=== PATIENT | female | born 1980 | race Caucasian/White ===

== ENCOUNTER 2020-03-21 09:52 | Day surgery (SDC) | payer OTHER ==
[2020-03-21 10:20] LABS: Glucose,Whole Blood 157 mg/dL (75-99)
[2020-03-21] MEDS ORDERED: LACTATED RINGERS 1,000 ML IV ONE (10:25)
[2020-03-21 10:36] VITALS: TEMP 97.3
[2020-03-21] MEDS ORDERED: LIDOCAINE 1% INJ 10MG/ML (20 ML MDV) ONE (10:40)
[2020-03-21] MEDS ORDERED: PROPOFOL 10 MG/ML 20 ML VIAL IV ONE (10:40)
--- NOTE | 2020-03-21 10:40 | P.GSHP ---
History of Present Illness H&P Date: 03/21/20 Chief Complaint: Anemia This a 39-year-old female who's underwent colonoscopy for workup of anemia. Patient denies a significant GI bleed. Currently on iron supplementation. Past Medical History Past Medical History: Diabetes Mellitus History of Any Multi-Drug Resistant Organisms: None Reported Past Surgical History: Section Past Psychological History: Depression Past Alcohol Use History: Occasional Past Drug Use History: None Reported Medications and Allergies Home Medications Medication Instructions Recorded Confirmed Type Ciprofloxacin HCl [Cipro] 500 mg PO Q12HR #20 tablet 09/17/15 Rx Citalopram Hydrobromide 40 mg PO DAILY 09/17/15 09/17/15 History [Citalopram HBr] INSULIN LISPRO (HumaLOG) [HumaLOG] 0 units SQ ACHS 09/17/15 09/17/15 History Insulin Glargine [Lantus] 38 unit SQ DAILY 09/17/15 09/17/15 History Omeprazole 20 mg PO DAILY 09/17/15 09/17/15 History Allergies Allergy/AdvReac Type Severity Reaction Status Date / Time No Known Allergies Allergy Verified 09/17/15 15:08 Surgical - Exam Vital Signs Temp Pulse Resp BP Pulse Ox 97.3 F L 83 16 154/82 98 03/21/20 10:35 03/21/20 10:35 03/21/20 10:35 03/21/20 10:35 03/21/20 10:35 - General well developed, well nourished, no distress - Eyes PERRL - ENT normal pinna - Neck no masses - Respiratory normal expansion - Cardiovascular Rhythm: regular - Abdomen Abdomen: soft, non tender Results - Labs Abnormal Lab Results - Last 24 Hours (Table) 03/21/20 Range/Units 10:16 POC Glucose (mg/dL) 157 H (75-99) mg/dL Assessment and Plan Assessment: Anemia. We'll perform colonoscopy for workup of anemia and possible GI bleed..
--- NOTE | 2020-03-21 10:58 | P.OP ---
Date of Procedure: 03/21/20 Preoperative Diagnosis: Anemia Postoperative Diagnosis: Antral gastritis Hiatal hernia Esophagitis Rectal polyp Procedure(s) Performed: EGD Colonoscopy Anesthesia: MAC Surgeon: Joe Whitehead Pathology: other (Antrum, esophagus) Condition: stable Disposition: PACU Description of Procedure: The patient's placed on the endoscopy table in the lateral position. She received IV sedation. The gastricoropharynx passed in the esophagus and stomach. Scope then placed through the pylorus. First and second portion of the duodenum appeared normal. Scope was brought back the antrum this is mildly inflamed. A biopsies performed at scope was unretroflexed and remainder of the stomach appeared normal. There was a small hiatal hernia. The GE junction was at 40 cm the distal esophagus appeared inflamed a biopsies performed. The proximal esophagus appeared normal. Scope was withdrawn for patient. Next digital rectal exam was performed which revealed a few internal hemorrhoids. The flexible colonoscope was then placed patient anus passed rotator entire colon. The ileocecal valve was visually is. The cecum, ascending and transverse colon appeared normal. The descending and sigmoid colon appeared normal. In the rectum there were 2 polyps seen this removed with the snare and cold biopsy forcep. The scope was withdrawn for patient. There is no evidence of any GI bleed.
[2020-03-21 11:34] VITALS: RESP 20
[2020-03-21] MEDS ORDERED: LACTATED RINGERS 1,000 ML IV SCH (11:37)
[2020-03-21 11:38] VITALS: BP 123/78; PULSE 80
--- NOTE | 2020-03-23 15:24 | CDI ---
Outpatient Documentation Clarification Form Date: 03/23/20 CDS/Blower And Compressor Assembler Name: Kathryn Amador Phone: If any questions, call Annika Koroma Installation Helper at [phone] Patient Name: Carly Calderon Admit Date: 03/21/26 Discharge Date: 03/23/20 ATTENTION: The [facility] Coding Staff appreciate your assistance in clarifying documentation. Please respond to the clarification below the line at the bottom and electronically sign. The [facility] Coding staff will review the response and follow-up if needed. Please note: Queries are made part of the Legal Health Record. If you have any questions, please contact the Installation Helper. Dear Dr. Spivey, Please clarify the method of biopsy EACH individual polyp. Operative report states "In the rectum there were 2 polyps seen. this was removed with snare and biopsy forceps. In order to code to the most specificity please clarify below: Colonoscopy/ biopsy. Polypectomy (snare) Cold biopsy forceps Thank you for your kind consideration . 1 polyp was removed with the snare, the second polyp was removed with the cold biopsy forcep MTDD
== END 2020-03-21 11:46 | disposition home or self-care (01) ==
LOC: ORWHC2ENDO 09:52
PROVIDERS: ATTEND Surgery
DX: D12.8 Benign neoplasm of rectum (principal); K44.9 Diaphragmatic hernia without obstruction or gangrene; K64.8 Other hemorrhoids; K29.50 Unspecified chronic gastritis without bleeding; K21.0 Gastro-esophageal reflux disease with esophagitis; D64.9 Anemia, unspecified; E11.9 Type 2 diabetes mellitus without complications; F32.9 Major depressive disorder, single episode, unspecified; F17.200 Nicotine dependence, unspecified, uncomplicated; Z98.890 Other specified postprocedural states; Z79.4 Long term (current) use of insulin; Z79.899 Other long term (current) drug therapy
CPT/HCPCS: 45385; 45380; 43239; 81025; 88305; J2001; J2704

== ENCOUNTER → 2020-04-29 | Outpatient (CLI) | payer OTHER ==
[2020-04-29 16:12] LABS: HCT 39.7 % (34.0-46.0); HGB 12.7 gm/dL (11.4-16.0); Hypochromasia Slight; MCH 30.2 pg (25.0-35.0); MCV 94.3 fL (80.0-100.0); Mean Platelet Volume 7.7; Platelet Count 344 k/uL (150-450); RBC 4.21 m/uL (3.80-5.40); RDW 15.8 % (11.5-15.5); WBC 10.4 k/uL (3.8-10.6)
== END | disposition home or self-care (01) ==
LOC: LABPAT 13:54
PROVIDERS: ATTEND Surgery
DX: Z01.818 Encounter for other preprocedural examination (principal)
CPT/HCPCS: 36415; 85027

== ENCOUNTER 2020-05-01 07:07 | Day surgery (SDC) | payer OTHER ==
[2020-04-29 13:10] VITALS: BMI 42.3
[~2020-05-01 07:07] MED LIST: ACETAMINOPHEN TAB 500 MG TAB PO ONE; DEXAMETHASONE SOD PHOSPHATE 10 MG/ML 1 ML VIAL IV ONE; HEPARIN SODIUM,PORCINE 5,000 UNIT/ML 1 ML VIAL SQ ONE; LACTATED RINGERS 1,000 ML IV SCH; LIDOCAINE 1% (10MG/ML) FOR IV START INTRADERMA PRN; MIDAZOLAM 2 MG/2 ML VIAL IV PRN; ONDANSETRON 4 MG/2 ML VIAL IVP ONE; ceFAZolin 3 GM in SODIUM CHLORIDE 0.9% 100 ML IVPB ONE
[2020-05-01 07:51] LABS: Glucose,Whole Blood 93 mg/dL (75-99)
[2020-05-01] MEDS ORDERED: SUCCINYLCHOLINE CHLORIDE 100 MG/5 ML SYR IV ONE (08:09)
[2020-05-01] MEDS ORDERED: HYDROmorphone (PF) 1 MG/ML ONE (08:09)
[2020-05-01] MEDS ORDERED: NEOSTIGMINE 1 MG/ML 10 ML VIAL ONE (08:09)
[2020-05-01] MEDS ORDERED: LIDOCAINE 1% INJ 10MG/ML (20 ML MDV) ONE (08:09)
[2020-05-01] MEDS ORDERED: ROCURONIUM 10 MG/ML (5 ML VIAL) IV ONE (08:09)
[2020-05-01] MEDS ORDERED: GLYCOPYRROLATE 0.2 MG/ML 2 ML VIAL ONE (08:09)
[2020-05-01] MEDS ORDERED: PROPOFOL 10 MG/ML 20 ML VIAL IV ONE (08:09)
[2020-05-01] MEDS ORDERED: ONDANSETRON 4 MG/2 ML VIAL ONE (08:09)
[2020-05-01] MEDS ORDERED: MIDAZOLAM 2 MG/2 ML VIAL ONE (08:09)
[2020-05-01] MEDS ORDERED: fentaNYL (PF) 50 MCG/ML 2 ML AMP ONE (08:09)
[2020-05-01] MEDS ORDERED: BUPIVACAINE (PF) 0.25% 30 ML VIAL SQ ONE (08:32)
--- NOTE | 2020-05-01 08:50 | P.GSHP ---
History of Present Illness H&P Date: 05/01/20 Chief Complaint: Right upper quadrant pain Is a 39-year-old female with right upper quadrant pain. Her recent HIDA scan shows a abnormal ejection fraction consistent with chronic cholecystitis and biliary hyperkinesis. Patient presents today for laparoscopic cholecystectomy. Past Medical History Past Medical History: Diabetes Mellitus, GERD/Reflux, Hyperlipidemia History of Any Multi-Drug Resistant Organisms: None Reported Past Surgical History: Section Additional Past Surgical History / Comment(s): EGD Past Anesthesia/Blood Transfusion Reactions: No Reported Reaction Smoking Status: Current every day smoker - Past Family History Mother Family Medical History: Cancer Father Family Medical History: Cancer Daughter(s) Family Medical History: Cancer Medications and Allergies Home Medications Medication Instructions Recorded Confirmed Type INSULIN LISPRO (HumaLOG) [HumaLOG] 0 units SQ ACHS 09/17/15 05/01/20 History Omeprazole 20 mg PO DAILY 09/17/15 05/01/20 History Atorvastatin [Lipitor] 10 mg PO HS 04/29/20 05/01/20 History DULoxetine HCL [Cymbalta] 30 mg PO HS 04/29/20 05/01/20 History DULoxetine HCL [Cymbalta] 60 mg PO QAM 04/29/20 05/01/20 History Ergocalciferol [Vitamin D2] 50,000 unit PO MO 04/29/20 05/01/20 History Ferrous Sulfate [Feosol] 325 mg PO DAILY 04/29/20 05/01/20 History Insulin Glargine,Hum.rec.anlog 50 unit SQ HS 04/29/20 05/01/20 History [[place] U-100] Allergies Allergy/AdvReac Type Severity Reaction Status Date / Time venlafaxine [From Effexor] Allergy Swelling Verified 05/01/20 07:33 Surgical - Exam Vital Signs Temp Pulse Resp BP Pulse Ox 98.5 F 90 16 185/83 95 05/01/20 07:18 05/01/20 07:18 05/01/20 07:18 05/01/20 07:18 05/01/20 07:18 - General well developed, well nourished, no distress - Eyes PERRL - ENT normal pinna - Neck no masses - Respiratory normal expansion - Cardiovascular Rhythm: regular - Abdomen Abdomen: soft Assessment and Plan Assessment: Chronic cholecystitis Morbid obesity Patient will undergo for laparoscopic cholecystectomy
--- NOTE | 2020-05-01 08:51 | P.OP ---
Date of Procedure: 05/01/20 Preoperative Diagnosis: Cholecystitis Postoperative Diagnosis: Cholecystitis Procedure(s) Performed: Laparoscopic cholecystectomy Anesthesia: CARMEN Surgeon: Joe Whitehead Estimated Blood Loss (ml): 5 Pathology: other (Gallbladder) Condition: stable Disposition: PACU Description of Procedure: The patient was placed on the operating table. The patient received a general endotracheal tube anesthesia. The patients abdomen was prepped and draped in the usual sterile fashion. Through an infraumbilical stab incision, the fascia of the anterior abdominal wall was grasped with a pair of Kochers and then the Veress needle was placed in the peritoneal cavity. Position of the Veress needle was confirmed with positive drop test. The abdomen was then insufflated. After adequate insufflation, the 10 mm trocar was placed in the peritoneal cavity. Following this the laparoscope was placed in the peritoneal cavity. The patient was placed in the head-up, right side up position and then a 5 mm trocar was placed in the right lateral and right subcostal position under direct visualization. A 8 mm trocar was placed in the epigastric position. The gallbladder was grasped in the fundus and infundibulum. Traction on the gallbladder was placed in the lateral and the cephalad positions. The triangle of Calot was visualized.. The cystic duct was bluntly dissected until the union of the cystic duct and common bile duct was seen. A critical view of safety was achieved. The cystic duct was then divided and sealed with the Harmonic scissors. A PDS Endoloop was then placed throughout the cystic duct stump. The cystic artery divided and sealed with the Harmonic scissors. The gallbladder was then removed from the liver bed using Harmonic scissors. The gallbladder was then extracted through the epigastric port site. Operative field was checked for any bleeding spots and Harmonic scissors was used to coagulate the liver bed. The abdomen was irrigated. The trocars were removed. The skin was closed using interrupted 3-0 Vicryl suture. Dermabond dressing were applied. The patient tolerated the procedure well.
[2020-05-01 09:09] VITALS: TEMP 96.8
[2020-05-01] MEDS: HYDROmorphone 0.5 MG/0.5 ML SYRINGE IVP PRN ×3 (09:13→09:27)
[2020-05-01] MEDS ORDERED: LACTATED RINGERS 1,000 ML IV ONE ×2 (09:15)
[2020-05-01 09:23] LABS: Glucose,Whole Blood 112 mg/dL (75-99)
[2020-05-01 09:30] VITALS: RESP 16
[2020-05-01 10:31] VITALS: BP 138/77; PULSE 74
== END 2020-05-01 10:54 | disposition home or self-care (01) ==
LOC: OR 07:07
PROVIDERS: ATTEND Surgery
DX: K81.1 Chronic cholecystitis (principal); E11.9 Type 2 diabetes mellitus without complications; K21.9 Gastro-esophageal reflux disease without esophagitis; E78.5 Hyperlipidemia, unspecified; Z98.891 History of uterine scar from previous surgery; F17.200 Nicotine dependence, unspecified, uncomplicated; I10 Essential (primary) hypertension; F32.9 Major depressive disorder, single episode, unspecified; F17.210 Nicotine dependence, cigarettes, uncomplicated; E66.01 Morbid (severe) obesity due to excess calories; Z68.41 Body mass index [BMI] 40.0-44.9, adult; Z80.9 Family history of malignant neoplasm, unspecified; Z79.4 Long term (current) use of insulin; Z79.899 Other long term (current) drug therapy; Z88.8 Allergy status to other drugs, medicaments and biological substances
CPT/HCPCS: 81025; 88304; 47562; J2250; J1644; J1100; J2710; J0690; J2405; J2001; J3010; J1170 ×2; J0330; J2704

== ENCOUNTER → 2024-01-12 | Outpatient (CLI) | payer MEDICARE, OTHER ==
--- NOTE | 2024-01-12 08:55 | MM ---
Reason for Exam: Clinical finding. Last mammogram was performed 2 year(s) and 2 month(s) ago. Risk Values: Jackie 5 year model risk: 0.5%. NCI Lifetime model risk: 6.5%. Tissue Density: The breasts are heterogeneously dense, which may obscure small masses. Findings: Analyzed By CAD. No evidence for mass or distortion. Stable benign-appearing calcifications outer left breast. Ultrasound recommended for site of palpable abnormality left breast. Overall Assessment: Incomplete: need additional imaging evaluation, BI-RAD 0 Management: Diagnostic Breast Ultrasound of the left breast. . Results were given to the patient verbally at the time of exam. Patient should continue monthly self-breast exams. A clinical breast exam by your physician is recommended on an annual basis. This exam should not preclude additional follow-up of suspicious palpable abnormalities. Note on Jackie scores and lifetime risk: 1. A Jackie score greater than 3% is considered moderate risk. If this is the case, consider specialist referral to assess eligibility for a risk reducing agent. 2. If overall lifetime risk for the development of breast cancer is 20% or higher, the patient may qualify for future screening with alternating mammogram and breast MRI. Electronically signed and approved by: Garrett Vallejo M.D. Radiologis
--- NOTE | 2024-01-12 09:18 | USB ---
Reason for Exam: Clinical finding. Patient History: Menarche at age 11. First Full-Term at age 24. Premenopausal. Maternal grandmother had breast cancer, age 70. Mother had breast cancer, age 50. Risk Values: Jackie 5 year model risk: 1.5%. NCI Lifetime model risk: 18.2%. Technique: Method: Targeted. Prior Study Comparison: 07/16/2020 Bilateral Screening Mammogram, [facility]. 10/28/2021 Bilateral Screening Mammogram, [facility]. Findings: The lower section of the breast of the left breast, the axilla of the left breast and the retroareolar of the left breast were scanned. Vague hyperechoic area with central decreased echogenicity at the left 8:00 position at the site of clinical concern for centimeters from the nipple measuring 1.1 x 2.7 cm. This findings felt to reflect an area of contusion. Correlate clinically and follow-up is recommended. Overall Assessment: Probably benign, BI-RAD 3 Management: Diagnostic Breast Ultrasound of the left breast in 6 months. A clinical breast exam by your physician is recommended on an annual basis and results should be correlated with mammographic findings. This exam should not preclude additional follow-up of suspicious palpable abnormalities. Results were given to the patient verbally at the time of exam. Electronically signed and approved by: Garrett Vallejo M.D. Radiologis
== END | disposition home or self-care (01) ==
LOC: RADMAMWWP 08:28
PROVIDERS: ATTEND Family Medicine
DX: N63.0 Unspecified lump in unspecified breast (principal); Z80.3 Family history of malignant neoplasm of breast; R92.333 Mammographic heterogeneous density, bilateral breasts
CPT/HCPCS: 77062; 77066

== ENCOUNTER 2024-02-14 07:55 | Day surgery (SDC) | payer MEDICARE ==
[~2024-02-14 07:55] MED LIST changes: -ACETAMINOPHEN TAB 500 MG TAB PO ONE; -DEXAMETHASONE SOD PHOSPHATE 10 MG/ML 1 ML VIAL IV ONE; -HEPARIN SODIUM,PORCINE 5,000 UNIT/ML 1 ML VIAL SQ ONE; -LACTATED RINGERS 1,000 ML IV SCH; -MIDAZOLAM 2 MG/2 ML VIAL IV PRN; -ONDANSETRON 4 MG/2 ML VIAL IVP ONE; -ceFAZolin 3 GM in SODIUM CHLORIDE 0.9% 100 ML IVPB ONE
[2024-02-14 08:24] VITALS: TEMP 97.6
[2024-02-14] MEDS: IV FLUID CONTINUATION 1,000 ML IV ONE ×3 (08:25→10:04)
[2024-02-14] MEDS: LACTATED RINGERS 1,000 ML IV SCH (08:38)
[2024-02-14] MEDS ORDERED: LIDOCAINE 2% (PF) 20 MG/ML 5 ML VIAL ONE (09:46)
[2024-02-14] MEDS ORDERED: PROPOFOL 10 MG/ML 20 ML VIAL IV ONE (09:46)
--- NOTE | 2024-02-14 09:56 | P.GSHP ---
History of Present Illness H&P Date: 02/14/24 Chief Complaint: , Hiatal hernia Is a 43-year-old female with complaints of gerd. Patient is known to have a hiatal hernia. Past Medical History Past Medical History: Diabetes Mellitus, GERD/Reflux, Hyperlipidemia, Hypertension Additional Past Medical History / Comment(s): Type I DM History of Any Multi-Drug Resistant Organisms: None Reported Past Surgical History: Section Additional Past Surgical History / Comment(s): EGD, colonoscopy, pilonidal cyst excision Past Anesthesia/Blood Transfusion Reactions: No Reported Reaction Smoking Status: Former smoker - Past Family History Mother Family Medical History: Cancer Father Family Medical History: Cancer Daughter(s) Family Medical History: Cancer Medications and Allergies Home Medications Medication Instructions Recorded Confirmed Type Omeprazole 20 mg PO BID PRN 09/17/15 02/14/24 History Atorvastatin [Lipitor] 10 mg PO HS 04/29/20 02/14/24 History DULoxetine HCL [Cymbalta] 60 mg PO QAM 04/29/20 02/14/24 History Ibuprofen [Motrin] 600 mg PO Q6HR PRN #40 tab 05/01/20 02/14/24 Rx Acetaminophen Tab [Tylenol] 650 mg PO Q6H PRN 02/09/24 02/14/24 History Dulaglutide [Trulicity] 1.5 mg SQ Q7D 02/09/24 02/14/24 History INSULIN LISPRO (For Pump) [humaLOG 2.3 units SQ-PUMP CONTINUOUS 02/09/24 02/14/24 History (For Pump)] lamoTRIgine [LaMICtal] 100 mg PO QAM 02/09/24 02/14/24 History lisinopriL [Zestril] 10 mg PO DAILY 02/09/24 02/14/24 History Allergies Allergy/AdvReac Type Severity Reaction Status Date / Time venlafaxine [From Effexor] Allergy Swelling Verified 02/14/24 08:26 Surgical - Exam Vital Signs Temp Pulse Resp BP Pulse Ox 97.6 F 68 18 143/70 100 02/14/24 08:23 02/14/24 08:23 02/14/24 08:23 02/14/24 08:23 02/14/24 08:23 - General well developed, well nourished, no distress - Eyes PERRL - ENT normal pinna - Neck no masses - Respiratory normal expansion - Cardiovascular Rhythm: regular - Abdomen Abdomen: soft, non tender Assessment and Plan Assessment: hiatal hernia. Will perform EGD.
--- NOTE | 2024-02-14 10:05 | P.OP ---
Date of Procedure: 02/14/24 Preoperative Diagnosis: Gerd Hiatal hernia Postoperative Diagnosis: GerdGERD hiatal hernia Esophagitis Procedure(s) Performed: EGD Anesthesia: MAC Surgeon: Joe Whitehead Pathology: other (antrum, esophagus) Condition: stable Disposition: PACU Description of Procedure: the patient's placed on the endoscopy table in the lateral position. She received IV sedation. The gastro-/oropharynx passed in the esophagus and stomach. Scope was placed through the pylorus. First and second portion of the duodenum appeared normal. Scope summer back the antrum this was mildly inflamed. A biopsies performed. Scope was unretroflexed and remainder the stomach appeared normal. The patient had a sliding hiatal hernia. The GE junction was at 38 cm. The distal esophagus appeared mildly inflamed and a biopsies performed. The proximal esophagus appeared normal. Scope was withdrawn for patient.
[2024-02-14 10:37] VITALS: BP 112/64; PULSE 84; RESP 16
== END 2024-02-14 10:45 | disposition home or self-care (01) ==
LOC: ORWHC2ENDO 07:55
PROVIDERS: ATTEND Surgery
DX: K29.50 Unspecified chronic gastritis without bleeding (principal); E11.9 Type 2 diabetes mellitus without complications; I10 Essential (primary) hypertension; E78.5 Hyperlipidemia, unspecified; F41.9 Anxiety disorder, unspecified; F32.A Depression, unspecified; Z79.4 Long term (current) use of insulin; Z87.891 Personal history of nicotine dependence; Z80.9 Family history of malignant neoplasm, unspecified; Z79.899 Other long term (current) drug therapy; Z79.02 Long term (current) use of antithrombotics/antiplatelets; Z79.1 Long term (current) use of non-steroidal anti-inflammatories (NSAID); Z79.85 Long-term (current) use of injectable non-insulin antidiabetic drugs; Z88.8 Allergy status to other drugs, medicaments and biological substances
CPT/HCPCS: 43239; 81025; 88305

== ENCOUNTER → 2024-03-09 | Outpatient (CLI) | payer OTHER | END | disposition home or self-care (01) | LOC: LABWHC1 12:24 | DX: Z01.818 Encounter for other preprocedural examination (principal); K21.9 Gastro-esophageal reflux disease without esophagitis; R94.31 Abnormal electrocardiogram [ECG] [EKG]; Z79.899 Other long term (current) drug therapy | CPT/HCPCS: 36415; 93005 ==

== ENCOUNTER 2024-03-13 08:00 | Inpatient (IN) | payer OTHER ==
[2024-03-13] MEDS ORDERED: DEXAMETHASONE SOD PHOSPHATE 4 MG/ML 1 ML VIAL ONE ×2 (09:30)
[2024-03-13] MEDS ORDERED: HEPARIN SODIUM,PORCINE 5,000 UNIT/ML 1 ML VIAL ONE ×2 (09:30)
[2024-03-13] MEDS ORDERED: ACETAMINOPHEN TAB 500 MG TAB ONE ×2 (09:30)
[2024-03-13] MEDS ORDERED: ONDANSETRON 4 MG/2 ML VIAL ONE ×2 (09:31)
[2024-03-13] MEDS ORDERED: fentaNYL (PF) 50 MCG/ML 2 ML AMP ONE (12:06)
[2024-03-13] MEDS ORDERED: PROPOFOL 10 MG/ML 20 ML VIAL IV ONE (12:06)
[2024-03-13] MEDS ORDERED: PHENYLEPHRINE-0.9% NACL SYG 1,000 MCG/10 ML SYRINGE ONE (12:06)
[2024-03-13] MEDS ORDERED: diphenhydrAMINE 50 MG/ML 1 ML VIAL ONE (12:06)
[2024-03-13] MEDS ORDERED: NEOSTIGMINE 1 MG/ML 10 ML VIAL ONE (12:06)
[2024-03-13] MEDS ORDERED: HYDROmorphone (PF) 1 MG/ML ONE (12:06)
[2024-03-13] MEDS ORDERED: KETOROLAC 15 MG/ML 1 ML VIAL ONE (12:06)
[2024-03-13] MEDS ORDERED: ROCURONIUM 10 MG/ML (5 ML VIAL) IV ONE (12:06)
[2024-03-13] MEDS ORDERED: SUCCINYLCHOLINE CHLORIDE 200 MG/10 ML VIAL IV ONE (12:06)
[2024-03-13] MEDS ORDERED: ceFAZolin 1 GM/50 ML BAG (PMX) ONE (12:06)
[2024-03-13] MEDS ORDERED: MIDAZOLAM 2 MG/2 ML VIAL ONE (12:06)
[2024-03-13] MEDS ORDERED: GLYCOPYRROLATE 0.2 MG/ML 2 ML VIAL ONE (12:06)
[2024-03-13] MEDS ORDERED: LIDOCAINE 1% INJ 10MG/ML (20 ML MDV) ONE (12:06)
[2024-03-13] MEDS ORDERED: METOCLOPRAMIDE 5 MG/ML 2 ML VIAL ONE (13:40)
[2024-03-13] MEDS ORDERED: HYDROmorphone 0.5 MG/0.5 ML SYRINGE ONE ×2 (13:40→17:35)
[2024-03-13] MEDS ORDERED: INSULIN ASPART (NovoLOG) 100 UNIT/ML VIAL SQ ONE ×3 (14:42→21:23)
[2024-03-13] MEDS ORDERED: HYDROmorphone 1 MG/ML 1 ML SYRINGE ONE ×2 (21:23)
[2024-03-14] MEDS ORDERED: HYDROmorphone 1 MG/ML 1 ML SYRINGE ONE ×4 (02:17→07:28)
[2024-03-14] MEDS ORDERED: ONDANSETRON 4 MG/2 ML VIAL ONE ×6 (02:17→07:27)
[2024-03-14] MEDS ORDERED: INSULIN ASPART (NovoLOG) 100 UNIT/ML VIAL SQ ONE ×2 (06:37)
[2024-03-14] MEDS ORDERED: lisinopriL 20 MG TAB ONE ×2 (07:28)
[2024-03-14] MEDS ORDERED: PANTOPRAZOLE 40 MG TABLET PO ONE ×2 (07:28)
[2024-03-14] MEDS ORDERED: DULoxetine HCL 60 MG CAPSULE.DR PO ONE ×2 (07:28)
[2024-03-14] MEDS ORDERED: lamoTRIgine 100 MG TAB ONE ×2 (07:28)
[2024-03-14] MEDS ORDERED: PROCHLORPERAZINE INJ 10 MG/2 ML VIAL ONE ×4 (11:36→20:53)
[2024-03-14] MEDS ORDERED: DEXAMETHASONE SOD PHOSPHATE 4 MG/ML 1 ML VIAL ONE ×2 (14:04)
[2024-03-14] MEDS ORDERED: ACETAMINOPHEN IV (For NPO) 100 ML ONE ×2 (15:01)
[2024-03-14] MEDS ORDERED: ATORVASTATIN 20 MG TAB ONE ×2 (20:53)
[2024-03-14] MEDS ORDERED: SODIUM CHLORIDE 0.9% 1,000 ML BAG ONE (21:36)
[2024-03-15] MEDS ORDERED: DEXAMETHASONE SOD PHOSPHATE 4 MG/ML 1 ML VIAL ONE ×4 (00:21→06:12)
[2024-03-15] MEDS ORDERED: ACETAMINOPHEN IV (For NPO) 100 ML ONE ×4 (00:21→06:12)
[2024-03-15] MEDS ORDERED: SODIUM CHLORIDE 0.9% 1,000 ML BAG ONE (00:30)
[2024-03-15] MEDS ORDERED: DULoxetine HCL 60 MG CAPSULE.DR PO ONE ×2 (08:43)
[2024-03-15] MEDS ORDERED: lamoTRIgine 100 MG TAB ONE ×2 (08:43)
[2024-03-15] MEDS ORDERED: lisinopriL 20 MG TAB ONE ×2 (08:43)
[2024-03-15] MEDS ORDERED: PANTOPRAZOLE 40 MG TABLET PO ONE ×2 (08:43)
--- NOTE | 2024-03-17 15:56 | OP ---
OPERATIVE REPORT DATE OF SERVICE : 03/13/2024 PROCEDURE: Laparoscopic hiatal hernia repair. PREOPERATIVE DIAGNOSIS: Gastroesophageal reflux disease. POSTOPERATIVE DIAGNOSIS: Gastroesophageal reflux disease. ASSISTANTS: None. ANESTHESIA: General endotracheal tube anesthesia. PROCEDURE IN DETAIL: The patient was placed on the operating table in the supine position. She received general endotracheal tube anesthesia. Her abdomen was prepped and draped in the usual sterile fashion. The skin incision sites were anesthetized with 1% local Xylocaine. The abdomen was entered in the left periumbilical area using a 5 mm optical trocar under direct vision. After adequate insufflation, the camera was placed into the peritoneal cavity. A 5 mm trocar was placed in the right epigastric, left epigastric, right lateral and left lateral position. The left lateral lobe of liver was retracted. The hiatal hernia was visualized. The crural defect was then performed with the Harmonic scissors. A 360-degree crural defect was performed. The crural defect was then closed with 2-0 Ethibond suture. The stomach was quite adherent to the spleen. Due to the inflammatory changes, I decided not to perform a fundoplication in order to avoid damage to the spleen. At this point, the area was irrigated. There was no bleeding seen. Trocars were withdrawn. Skin was closed with interrupted 3-0 Monocryl suture. Dermabond was applied. The patient tolerated the procedure well. She was sent to recovery room in stable condition. JUMANA / VANDANA: [id number] /
== END 2024-03-15 12:35 | disposition home or self-care (01) | DRG 220 ==
LOC: OR 08:00 → 4SSUR 13:27
PROVIDERS: ADMIT Surgery; ATTEND Surgery
PROC: 0BQT4ZZ Repair Diaphragm, Percutaneous Endoscopic Approach (ICD-10-PCS; principal; 2024-03-13 08:40)
DX: K44.9 Diaphragmatic hernia without obstruction or gangrene (principal); K21.00 Gastro-esophageal reflux disease with esophagitis, without bleeding; I10 Essential (primary) hypertension; E78.5 Hyperlipidemia, unspecified; D62 Acute posthemorrhagic anemia; F32.A Depression, unspecified; E10.65 Type 1 diabetes mellitus with hyperglycemia; Z79.4 Long term (current) use of insulin; Z96.41 Presence of insulin pump (external) (internal); Z79.899 Other long term (current) drug therapy; Z88.8 Allergy status to other drugs, medicaments and biological substances; Z53.09 Procedure and treatment not carried out because of other contraindication

== ENCOUNTER → 2024-07-17 | Day surgery (SDC) | payer MEDICARE, OTHER ==
[2024-07-13 15:41] VITALS: BMI 40.4
[~2024-07-17] MED LIST changes: +LACTATED RINGERS 1,000 ML IV SCH
== END ==
LOC: ORWHC2ENDO 12:30
PROVIDERS: ATTEND Surgery
DX: Z53.9 Procedure and treatment not carried out, unspecified reason (principal)

== ENCOUNTER 2024-08-21 11:12 | Day surgery (SDC) | payer MEDICARE ==
[2024-08-21 11:47] VITALS: RESP 16; TEMP 97.9
[2024-08-21] MEDS: LACTATED RINGERS 1,000 ML IV SCH (11:55)
[2024-08-21] MEDS: IV FLUID CONTINUATION 1,000 ML IV ONE (11:55)
[2024-08-21 12:06] LABS: Glucose,Whole Blood 77 mg/dL (70-110)
[2024-08-21] MEDS: DEXTROSE 50% SYRINGE 50 ML IVP STA (12:13)
[2024-08-21 12:35] LABS: Glucose,Whole Blood 121 mg/dL (70-110)
[2024-08-21] MEDS ORDERED: PROPOFOL 10 MG/ML 20 ML VIAL IV ONE (12:40)
--- NOTE | 2024-08-21 12:49 | P.GSHP ---
History of Present Illness H&P Date: 08/21/24 Chief Complaint: History of rectal adenoma This is a 44-year-old female with previous history of rectal adenoma. Patient presents today for colonoscopy. Past Medical History Past Medical History: Diabetes Mellitus, GERD/Reflux, Hyperlipidemia, Hypertension Additional Past Medical History / Comment(s): Type I DM,anemia,colon polyps History of Any Multi-Drug Resistant Organisms: None Reported Past Surgical History: Section, Hernia Repair Additional Past Surgical History / Comment(s): EGD, colonoscopy, pilonidal cyst excision Past Anesthesia/Blood Transfusion Reactions: No Reported Reaction Additional Past Anesthesia/Blood Transfusion Reaction / Comment(s): No history o f blood transfusion. Smoking Status: Former smoker - Past Family History Mother Family Medical History: Cancer Father Family Medical History: Cancer Daughter(s) Family Medical History: Cancer Medications and Allergies Home Medications Medication Instructions Recorded Confirmed Type Omeprazole 20 mg PO BID PRN 09/17/15 08/17/24 History Atorvastatin [Lipitor] 10 mg PO HS 04/29/20 08/17/24 History DULoxetine HCL [Cymbalta] 60 mg PO DAILY@139904/29/20 08/17/24 History Ibuprofen [Motrin] 600 mg PO Q6HR PRN #40 tab 05/01/20 08/17/24 Rx Dulaglutide [Trulicity] 1.5 mg SQ SA 02/09/24 08/17/24 History INSULIN LISPRO (For Pump) [humaLOG 2.3 units SQ-PUMP CONTINUOUS 02/09/24 08/17/24 History (For Pump)] lamoTRIgine [LaMICtal] 150 mg PO DAILY@1400 02/09/24 08/17/24 History lisinopriL [Zestril] 10 mg PO DAILY@1400 02/09/24 08/17/24 History Metoclopramide HCl [Reglan] 10 mg PO QID PRN 06/13/24 08/17/24 History Valbenazine Tosylate [Ingrezza] 60 mg PO DAILY@1400 06/13/24 08/17/24 History Cholecalciferol [Vitamin D3 (25 25 mcg PO DAILY 08/17/24 08/17/24 History Mcg = 1000 Iu)] Allergies Allergy/AdvReac Type Severity Reaction Status Date / Time venlafaxine [From Effexor] Allergy Severe tongue Verified 08/21/24 11:40 swelling Surgical - Exam Vital Signs Temp Pulse Resp BP Pulse Ox 97.9 F 80 16 153/73 97 08/21/24 11:45 08/21/24 11:45 08/21/24 11:45 08/21/24 11:45 08/21/24 11:45 - General well developed, well nourished, no distress - Eyes PERRL - ENT normal pinna - Neck no masses - Respiratory normal expansion - Cardiovascular Rhythm: regular - Abdomen Abdomen: soft, non tender Results - Labs Abnormal Lab Results - Last 24 Hours (Table) 08/21/24 Range/Units 12:29 POC Glucose (mg/dL) 121 H (70-110) mg/dL Assessment and Plan Assessment: History of rectal polyp. Patient will undergo colonoscopy.
[2024-08-21 13:30] LABS: Glucose,Whole Blood 66 mg/dL (70-110)
[2024-08-21 13:35] VITALS: BP 149/91; PULSE 75
--- NOTE | 2024-08-21 14:03 | P.OP ---
Date of Procedure: 08/21/24 Preoperative Diagnosis: History of rectal polyp Postoperative Diagnosis: Normal colonoscopy Procedure(s) Performed: Colonoscopy Anesthesia: MAC Surgeon: Joe Whitehead Pathology: none sent Condition: stable Disposition: PACU Description of Procedure: PROCEDURE: The patient was placed on the endoscopy table in the lateral position. Digital rectal examination was performed which revealed no abnormalities. es. Flexible colonoscope was then placed in the patient's anus and passed throughout the entire colon. The ileocecal valve was visualized. The cecum, ascending, transverse, descending and sigmoid colon were normal. The rectum was normal as well. There were no masses, polyps or diverticula noted in the entire colon. SUMMARY OF FINDINGS: Normal colonoscopy.
== END 2024-08-21 14:15 | disposition home or self-care (01) ==
LOC: ORWHC2ENDO 11:12
PROVIDERS: ATTEND Surgery
DX: Z12.11 Encounter for screening for malignant neoplasm of colon (principal); E78.5 Hyperlipidemia, unspecified; I10 Essential (primary) hypertension; E10.9 Type 1 diabetes mellitus without complications; K21.9 Gastro-esophageal reflux disease without esophagitis; F41.9 Anxiety disorder, unspecified; F32.A Depression, unspecified; E66.01 Morbid (severe) obesity due to excess calories; D64.9 Anemia, unspecified; Z79.4 Long term (current) use of insulin; Z87.891 Personal history of nicotine dependence; Z86.0100 Personal history of colon polyps, unspecified; Z98.890 Other specified postprocedural states; Z79.899 Other long term (current) drug therapy; Z88.1 Allergy status to other antibiotic agents
CPT/HCPCS: 81025; 45378; J2704

== ENCOUNTER → 2024-08-28 | Outpatient (CLI) | payer OTHER ==
--- NOTE | 2024-08-28 15:47 | USB ---
Reason for Exam: Follow-up at short interval from prior study. Patient History: Menarche at age 11. First Full-Term at age 24. Premenopausal. Maternal grandmother had breast cancer, age 70. Mother had breast cancer, age 50. Risk Values: Jackie 5 year model risk: 1.6%. NCI Lifetime model risk: 18.0%. Technique: Method: Targeted. Prior Study Comparison: 07/16/2020 Bilateral Screening Mammogram, [facility]. 10/28/2021 Bilateral Screening Mammogram, [facility]. 01/12/2024 Bilateral MG 3D diag mammo w/cad [facility], [facility]. Findings: The medial section of the breast of the left breast, the axilla of the left breast and the retroareolar of the left breast were scanned. Targeted ultrasound today. No solid or cystic masses are identified. Imaging included the axillae and the subareolar region.. Overall Assessment: Negative, BI-RAD 1 Management: Screening Mammogram of both breasts in 5 months. Return to routine follow-up. A clinical breast exam by your physician is recommended on an annual basis and results should be correlated with mammographic findings. This exam should not preclude additional follow-up of suspicious palpable abnormalities. Results were given to the patient verbally at the time of exam. [facility], , 08/28/2024 3:44 PM. Electronically signed and approved by: Dami Galindo M.D.
== END | disposition home or self-care (01) ==
LOC: RADUSWWP 14:56
PROVIDERS: ATTEND Family Medicine
DX: R92.8 Other abnormal and inconclusive findings on diagnostic imaging of breast (principal); Z80.3 Family history of malignant neoplasm of breast